=== PATIENT | female | born 1980 | race Caucasian/White ===

== ENCOUNTER 2023-07-22 12:41 | Emergency (ER) | payer OTHER ==
[~2023-07-22] VITALS: Ht 167.6 cm; Wt 59.0 kg
[2023-07-22] VITALS (10 sets, daily range): BP systolic 112–148; BP diastolic 70–104
[2023-07-22] MEDS ORDERED: PROZAC40 MG PO (13:02)
[2023-07-22] MEDS ORDERED: TRAZODONE100 MG PO (13:03)
== END 2023-07-22 15:33 | disposition home or self-care (01) ==
LOC: ED 12:41
DX: M25.511 Pain in right shoulder (principal)

== ENCOUNTER 2023-08-24 22:24 | Emergency (ER) | payer OTHER ==
[~2023-08-24] VITALS: Ht 167.6 cm; Wt 63.6 kg
[~2023-08-24 22:24] MED LIST: BUSPAR10 MG PO; HYDROXYZ PAM50 MG PO; MEDDOSEPAK PO; PROZAC20 MG PO; PROZAC40 MG PO; SEROQUEL50 MG PO; TRAZODONE100 MG PO
[2023-08-24 22:44] VITALS: BP 160/94
[2023-08-24] MEDS ORDERED: BACTRIM DS1 TAB PO (22:54)
[2023-08-24 23:00] VITALS: BP 161/94
[2023-08-24 23:16] VITALS: BP 189/103
[2023-08-24 23:25] VITALS: BP 189/103
== END 2023-08-24 23:25 | disposition home or self-care (01) ==
LOC: ED 22:24
DX: L73.9 Follicular disorder, unspecified (principal)

== ENCOUNTER 2023-10-30 20:35 | Emergency (ER) | payer OTHER ==
[2023-10-30] VITALS (9 sets, daily range): BP systolic 99–132; BP diastolic 52–103
[~2023-10-30] VITALS: Ht 167.6 cm; Wt 67.0 kg
[~2023-10-30 20:35] MED LIST changes: +BACTRIM DS1 TAB PO
[2023-10-30] MEDS ORDERED: CLONIDINE HCL0.3 MG PO (21:07)
[2023-10-30] MEDS ORDERED: REMERON30 MG PO (21:09)
[2023-10-30 21:39] LABS: BASO% 0.6 % (0-3); EOS% 6.4 % (0-8); HEMATOCRIT 35.8 % (37.0-47.0); HEMOGLOBIN 11.6 g/dl (12.0-16.0); LYMPH% 52.8 % (15-41); MEAN CELL VOLUME 95.7 fL CALC (80.0-100.0); MEAN CORPUSCULAR HGB CONC 32.4 g/dL CAL (32.0-36.0); MONO% 13.9 % (2-13); NEUT# 1.26 thou/uL (2.00-7.15); NEUT% 26.3 % (42-76); RED BLOOD COUNT 3.74 mill/uL (4.20-5.60); RED CELL DISTRI WIDTH 13.4 % (11.5-15.5)
[2023-10-30 21:56] LABS: ALBUMIN 3.6 g/dL (3.2-5.0); ALKALINE PHOSPHATASE 47 u/l (38-126); ANION GAP 10 (6-22 (CALC)); BILIRUBIN, TOTAL 0.2 mg/dL (0.02-1.3); BUN 17 mg/dL (7-17); BUN/CREATININE RATIO 26 (12-20 (CALC)); CARBON DIOXIDE 26 mmol/l (22-30); CHLORIDE 110 mmol/l (95-108); CREATININE 0.7 mg/dL (0.5-1.0); GFR FOR AFR.AMER. > 60 ML/MIN (>=60 (CALC)); GFR OTHER RACES > 60 ML/MIN (>=60 (CALC)); SGOT/AST 51 u/l (14-36); SODIUM 141 mmol/l (137-146); TOTAL PROTEIN 6.3 g/dL (6.3-8.2)
[2023-10-30] MEDS ORDERED: DOXY-CAPS100 MG PO (22:58)
== END 2023-10-30 23:45 | disposition home or self-care (01) ==
LOC: ED 20:35
PROVIDERS: Family Medicine
DX: L03.113 Cellulitis of right upper limb (principal); F15.90 Other stimulant use, unspecified, uncomplicated; G40.909 Epilepsy, unspecified, not intractable, without status epilepticus